=== PATIENT | female | born 1960 | race Caucasian/White ===

== ENCOUNTER → 2018-07-18 | Outpatient (CLI) | payer OTHER ==
--- NOTE | 2018-07-25 08:24 | Diagnostic Imaging Report ---
#[id number] - MGSCRBIL #BILATERAL DIGITAL SCREENING MAMMOGRAM WITH CAD: 07/18/2018 CLINICAL: Routine screening. Comparison is made to exams dated: 03/13/2017 mammogram - [facility] and 03/14/2016 mammogram - [facility]. Current study contains 4 films. The tissue of both breasts is heterogeneously dense. This may lower the sensitivity of mammography. Current study was also evaluated with a Computer Aided Detection (CAD) system. There are benign calcifications in both breasts. There also are post operative findings in both breasts with areas of distortion related to reduction mammoplasty. No significant masses, calcifications, or other findings are seen in either breast. There has been no significant interval change. IMPRESSION: BENIGN There is no mammographic evidence of malignancy. A 1 year screening mammogram is recommended. The patient will be notified by letter of the results. Peter Willard Jr., D.O. cw/:07/24/2018 15:58:56 [employer] Technician: Judie CONNORS(Bhavana)(M), [facility] letter sent: Compared to Prior B9 Mammogram BI-RADS: 2 Benign
== END ==
LOC: MAMMO 12:57
PROVIDERS: ATTEND Internal Medicine
DX: Z12.31 Encounter for screening mammogram for malignant neoplasm of breast (principal)
CPT/HCPCS: 77067

== ENCOUNTER → 2019-12-22 | Outpatient (CLI) | payer OTHER | LOC: MAMMO 10:56 | PROVIDERS: ATTEND Internal Medicine | DX: Z12.31 Encounter for screening mammogram for malignant neoplasm of breast (principal) | CPT/HCPCS: 77067 ==

== ENCOUNTER → 2021-12-28 | Outpatient (CLI) | payer OTHER | LOC: MAMMO 10:35 | PROVIDERS: ATTEND Internal Medicine | DX: Z12.31 Encounter for screening mammogram for malignant neoplasm of breast (principal) | CPT/HCPCS: 77067 ==

== ENCOUNTER → 2022-03-07 | Day surgery (SDC) | payer OTHER ==
[2022-03-02 10:51] LABS: BASOPHILS % 0.5 % (0.0-1.0); HEMATOCRIT 40.7 % (34.2-44.1); HEMOGLOBIN 13.3 g/dL (12.0-16.0); LYMPHOCYTES # (AUTO) 1.2 (1.0-3.2); LYMPHOCYTES % 27.2 % (18.0-39.1); MEAN CORPUSCULAR HEMOGLOBIN 29.9 pg (28-32); MEAN CORPUSCULAR HGB CONC 32.7 g/dL (31-35); MEAN CORPUSCULAR VOLUME 91.5 fL (81-99); MONOCYTES # (AUTO) 0.4 (0.2-0.8); MONOCYTES % 8.9 % (4.4-11.3); NEUTROPHILS # (AUTO) 2.8 (2.1-6.9); NEUTROPHILS % 63.2 % (38.7-80.0); PLATELET COUNT 225 x10e3/uL (140-360); RED BLOOD COUNT 4.45 x10e6/uL (3.6-5.1)
[~2022-03-07] MED LIST: BUPROPION HCL100 MG PO; EPINEPHRINE 1 MG/ML 30ML VIAL ONE; FIBER TABS625 MG PO; FISH OIL 1,0001 EAC2; FLUOXETINE HCL20 MG PO; HEPARIN SOD/SOD CHLORIDE 0 ML ONE; LAMOTRIGINE150 MG; MOVE FREE JOIN1 EACH; RED YEAST RICE600 MG
[2022-03-07 08:40] VITALS: BP 121/75
== END | disposition home or self-care (01) ==
LOC: OR 05:37
PROVIDERS: ATTEND Orthopaedic Surgery
DX: M75.122 Complete rotator cuff tear or rupture of left shoulder, not specified as traumatic (principal); M75.42 Impingement syndrome of left shoulder; M24.012 Loose body in left shoulder; M94.212 Chondromalacia, left shoulder; M75.52 Bursitis of left shoulder; F32.A Depression, unspecified; Z01.810 Encounter for preprocedural cardiovascular examination; Z01.812 Encounter for preprocedural laboratory examination; Z20.822 Contact with and (suspected) exposure to COVID-19; Z79.899 Other long term (current) drug therapy; Z87.891 Personal history of nicotine dependence
CPT/HCPCS: 0223U; 36415; 85025; 93005; C1713; J0690

== ENCOUNTER → 2022-05-24 | Outpatient (CLI) | payer OTHER ==
[~2022-05-24] MED LIST changes: -EPINEPHRINE 1 MG/ML 30ML VIAL ONE; -HEPARIN SOD/SOD CHLORIDE 0 ML ONE
== END ==
LOC: DX 10:33
PROVIDERS: ATTEND Obstetrics & Gynecology
DX: Z13.820 Encounter for screening for osteoporosis (principal); Z78.0 Asymptomatic menopausal state
CPT/HCPCS: 77080